=== PATIENT | female | born 1940 | race Caucasian/White ===

== ENCOUNTER 2016-06-30 18:40 | Emergency (ER) | payer OTHER ==
[2016-06-30] MEDS ORDERED: LIDOCAINE 2%/ EPI 1:200,000 - 20 ML VIAL ONE (19:28)
[2016-06-30] MEDS ORDERED: LIDOCAINE 2%/ EPI 1:200,000 - 20 ML VIAL SUBCUT ONE (19:40)
[2016-06-30] MEDS ORDERED: TETANUS AND DIPHTHERIA TOXOID 0.5 ML INJ IM ONE (20:04)
--- NOTE | 2016-06-30 20:08 | PDOC ---
Lower Extremity Injury HPI - General Chief Complaint: Laceration / Wound Stated Complaint: LACERATION TO LEFT THIGH Date Seen by Provider: 06/30/16 Time Seen by Provider: 19:35 Source: POSITIVE: Patient - History of Present Illness Initial Comments: Looks very nice 76-year-old woman who is in her regular state of health but as she was trying to get up into a large pickup truck she ended up slipping and then scraping the inside of her leg on a section of the inside of the door jam. She had instant pain there but didn't realize that she had injured herself significantly. She went into a local [employer] to do some business and found that she had substantial amount of blood on her pants. She was out of town and decided to tough it out until she got back here to [place]. She came to the urgent care initially but they found a substantial laceration so center to the emergency department here in the ER bleeding is stopped she does have a flap- like laceration on the left medial thigh proximally 7 cm. This wound is clean. Have you received a tetanus shot in the past 10 years?: Unknown - Patient Home Medications Home Medications: Home Medications D-Eyicaza-Soveukl B-12 1 each PO DAILY 10/29/10 Calcium Cit-Vit D 250-200 Tab 2 each PO DAILY 10/29/10 Dorzolamide HCl/Timolol Maleat [Cosopt Eye Drops] 1 drop OP BID drop 10/29/10 Flaxseed Oil 1,000 mg PO DAILY 10/29/10 Hydrocodone Bit/Acetaminophen [Hydrocodone-APAP 10-500 Tablet] 1 tab ORAL Q4-6H PRN tab 10/29/10 Levothyroxine Sodium 75 mcg ORAL QD tab 10/29/10 Multivitamins W-Minerals/Lut [Centrum Silver Tablet] 1 tab ORAL QD tab Omeprazole 40 mg ORAL QD capsule 10/29/10 Venlafaxine HCl [Effexor Xr] 75 mg ORAL QD capsule 10/29/10 Aspirin Chewable Tab 81 mg PO ONCE (ED) tab 09/16/14 Bacitracin Ointment 0.9gm 1 each TOPICAL DAILY #10 packet 09/16/14 Montelukast Sodium [Singulair] 1 tab PO DAILY #30 tab 10/23/14 - Patient Allergies Allergies/Adverse Reactions: Allergies Allergy/AdvReac Type Severity Reaction Status Date / Time No Known Drug Allergies Allergy NOT Verified 06/30/16 19:44 APPLICABLE Past Medical History - heen HEENT History: Denies History Cardiovascular History: Denies History Respiratory History: Denies History Gastrointestinal History: GERD Genitourinary History: Denies History Endocrine History: Hypothyroidism Musculoskeletal History: Denies History Prosthesis or Implant: No Neurological History: Denies History Blood Disorders: Denies History Psychiatric History: Depression History of Sexually Transmitted Diseases: No Female Reproductive History: Denies History Obstetrical History: Denies History Cancer History: Denies History In Past Year Been Physically Harmed or Verbally Threatened: No History of MDRO: No History of Other Communicable Diseases: No Tobacco Use: Never Smoker Alcohol Use: Occasionally Substance Use Type: None Previous Surgical History: Yes Type / Date of Surgery: Appy,Hyst,Tonsilectomy Significant Family History: No pertinent family hx Past Medical History Reviewed: Reviewed - No Changes ROS - Limitations ROS Limitations: No Limitations Constitution: REPORTS: Denies Symptoms Cardiovascular: REPORTS: Denies Cardiac Symptoms Respiratory: REPORTS: Denies Resp Symptoms Lower Ext Complaint Exam - General Appearance General Appearance: POSITIVE: Alert, Cooperative, No Acute Distress - Extremities Lower Extremity: POSITIVE: Normal Inspection, Other (Flap-like laceration in the medial mid left thigh proximally 7 cm total length of laceration that is through skin into subcutaneous tissues) Neurovascular/Tendon: POSITIVE: Sensation Normal, Motor Normal, No Vascular Compromise - HEENT HEENT: POSITIVE: Head Inspection Nml, Eyes Inspection Nml, Ears Inspection Nml - Neck / Back Neck/Back: POSITIVE: Normal Inspection, Non-Tender - Respiratory / CVS Respiratory / CVS: POSITIVE: No Respiratory Distress Procedures - Laceration/Wound Repair Did patient have a laceration repair: Yes Site of Laceration/Wound: Medial left thigh Wound Length (cm): 7 Wound's Depth, Shape: Into subcutaneous tissue Skin Prep: Betadine Prep Local Anesthesia Used - Indicate Amt Used in Comment: Lidocaine 2% with Epinephrine: Yes Wound Explored: Clean Wound Debrided: Moderate Wound Repaired With: Sutures single layer Suture Size/Type: 3:0 Number of Sutures: 3 Lower Ext Complaint Progress - Patient's Progress MDM / ED Course: Wound well approximated. There was about 8 hours that she went without having is close though. I encouraged her to monitor closely for possible infection and see her primary care doctor in the next couple days to make sure this is healing okay. Sutures out in 10 days Patient Care Time - Estimated PCT Patient Care Time (In Minutes): 40 Vital Signs - VS Reviewed Vital Signs Reviewed: Yes (vitals benign with my exam) Discharge Clinical Impression: Laceration - injury Discharge Disposition: Discharged to Home Condition: Stable Patient Instructions Given at Discharge: Laceration (ED) Additional Instructions: Follow-up with primary care provider in the next 1-2 days to monitor your wound Follow-up in 10 days to have sutures removed Tylenol and ibuprofen [id number] as needed for discomfort Follow-up of any other new concerns or any worsening of your current laceration or signs of infection. Follow Up With: NOT IN TABLE, [Primary Care Provider] -
== END 2016-06-30 20:17 | disposition home or self-care (01) ==
LOC: ER 18:40
DX: S71.112A Laceration without foreign body, left thigh, initial encounter (principal); W22.8XXA Striking against or struck by other objects, initial encounter
CPT/HCPCS: 12002; 90471; 90714; 99282

== ENCOUNTER → 2016-06-30 | Outpatient (CLI) | payer OTHER | LOC: MMPC 09:00 | DX: S71.112A Laceration without foreign body, left thigh, initial encounter (principal); W22.8XXA Striking against or struck by other objects, initial encounter | CPT/HCPCS: 99212; G0463 ==

== ENCOUNTER → 2016-07-22 | Outpatient (CLI) | payer OTHER | LOC: MMPC 09:00 | PROVIDERS: ATTEND Family Medicine | DX: J45.20 Mild intermittent asthma, uncomplicated (principal); K13.0 Diseases of lips | CPT/HCPCS: 99213; G0463 ==